=== PATIENT | male | born 1970 | race Caucasian/White ===

== ENCOUNTER 2020-06-07 08:30 | Emergency (ER) | payer MEDICAID, SELFPAY ==
[2019-04-07 12:41] VITALS: BMI 25.8
[2020-06-07 08:31] VITALS: BP 146/79; PULSE 85; RESP 18; TEMP 36.6; O2SAT 99; BMI 25.5
--- NOTE | 2020-06-07 09:07 | RAD_ITS ---
STUDY: X-RAY - LEFT SHOULDER REASON FOR EXAM: Male, 49 years old. Left shoulder pain x 1 month -- NKI -- limited ROM TECHNIQUE: 4 view(s) of the shoulder. COMPARISON: None. FINDINGS: Normal glenohumeral articulation. Normal acromioclavicular joint. Normal acromion. Normal humeral head and visualized proximal humerus. The soft tissue structures are unremarkable. Normal visualized pulmonary apex. RAD/Shoulder min 2 Views IMPRESSION: Normal x-ray examination of the shoulder. Electronically Signed: Onur Majano, at 10:06 EST Tel , Service support ,
--- NOTE | 2020-06-07 09:08 | ED.VIS.GEN ---
History of Present Illness Chief Complaint: Upper Extremity Injury Informant: Patient Narrative: 29-year-old male presenting with left shoulder pain. He states that the pain is intermittent. It feels sharp and its in the anterior aspect left shoulder. 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 He states that when he is working the pain eases up but when he is sleeping the pain hurts worse. He is not tried anything for pain. He has no paresthesias. He states he has no medical problems. He states otherwise he feels physically well. States he does not have a PCP and has not had this evaluated. Past Medical History - Allergies and Home Meds Allergies/Adverse Reactions: Allergies codeine Allergy (Verified 06/07/20 08:33) Rash Primary Care Physician: Care Physician,No Primary [Primary Care Provider] - Prior records reviewed: Yes Past Medical History: None Surgical History: noncontributory Lives: Spouse/ Significant Other Smoking Status: Current every day smoker Alcohol: None Drugs: None Review of Systems General: Denies: Chills, Fever, Sweats Eyes: Denies: Visual changes - bilaterally, Diplopia ENT: Denies: Rhinorrhea, Sore throat Cardiovascular: Denies: Chest pain, Palpitations Respiratory: Denies: Dyspnea, Cough, Dyspnea on exertion Gastrointestinal: Denies: Abdominal pain, Nausea, Vomiting, Diarrhea, Melena, Hematochezia Genitourinary: Denies: Dysuria, Hematuria, Frequency Musculoskeletal: Reports: Extremity Pain - Left shoulder pain. Denies: Neck pain, Back pain Skin: Reports: Abrasions - Superficial abrasion overlying the superior aspect of the left shoulder . Denies: Rash, Wounds Physical Exam Vital Signs/Narrative: Vital Signs Temp Pulse Resp BP Pulse Ox 06/07/20 08:31 97.9 F 85 18 146/79 H 99 General: Well nourished, Well developed, No Acute Distress Head: Normocephalic, Atraumatic Eyes: Perrl, EOMI ENT: Moist mucous membranes, No rhinorrhea Neck: Supple, Nontender Cardiovascular: Regular rate, Regular rhythm, No murmurs Respiratory: No distress, CTA bilaterally, Chest nontender Abdomen: Soft, Nontender, Nondistended, Normal bowel sounds Back: Nontender, Normal Inspection Extremities: No edema, - - Left shoulder is tender to palpation over the anterior superior aspect. There is a superficial abrasion measuring approximately 1.5 cm on the anterior aspect. Patient has full range of motion of the left shoulder. Strength in abduction, flexion, extension is 5/5. Skin: Normal color, - - Superficial abrasion as described above. Neurological: Alert, Oriented x3 Psychological: Normal affect, Normal Mood Diagnostic/Tx/Re-eval He 1-year-old male presenting with left shoulder pain. On physical exam he has full range of motion, 5/5 motor strength. He has no paresthesias. Patient does have a superficial abrasion on the left shoulder where he carries his lumbar. 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 Was given Naprosyn in the ER. He was given a prescription for this for home. He was given a primary care follow-up. Patient stable for discharge at this time. Impression: 1. Left shoulder strain ED Disposition - Plan for ED Patient: Disposition: Home or Assisted Living Instructions: ED Shoulder Sprain Prescriptions: Naproxen [Naprosyn] 500 mg PO BID PRN #30 tab Transmission Status: Received by [facility]/pharmacy #[id number] Referrals: Care Physician,No Primary [Primary Care Provider] - Reddy Hernandez MD [STAFF PHYSICIAN] -
[2020-06-07] MEDS: Naproxen 500 MG Tablet PO (09:16)
== END 2020-06-07 10:24 | disposition home or self-care (01) ==
PROVIDERS: Emergency Provider Student in an Organized Health Care Education/Training Program
DX: S46.912A Strain of unspecified muscle, fascia and tendon at shoulder and upper arm level, left arm, initial encounter (principal); F17.200 Nicotine dependence, unspecified, uncomplicated; X58.XXXA Exposure to other specified factors, initial encounter
CPT/HCPCS: 73030; 99283

== ENCOUNTER 2025-03-06 19:02 | Emergency (ER) | payer MEDICAID, SELFPAY ==
[2025-03-06 19:02] VITALS: BP 158/86; PULSE 79; RESP 18; TEMP 36.8; O2SAT 97; BMI 25.7
--- NOTE | 2025-03-06 19:20 | EKG12_ITS ---
Test Reason : CP Blood Pressure : */* mmHG Vent. Rate : 80 BPM Atrial Rate : 80 BPM P-R Int : 110 ms QRS Dur : 86 ms QT Int : 344 ms P-R-T Axes : 9 42 18 degrees QTcB Int : 396 ms Sinus rhythm with sinus arrhythmia with short NC T wave abnormality, consider inferior ischemia Abnormal ECG Confirmed by EBENEZER WHITTAKER ([id number]), manager editorial EVELYN FRANCIS ([id number]) on 03/09/2025 9:06:09 AM Referred By: Confirmed By: EBENEZER WHITTAKER
[2025-03-06 19:37] VITALS: O2SAT 97
--- NOTE | 2025-03-06 19:58 | RAD_ITS ---
PROCEDURE: CHEST 1 VIEW (PORTABLE) 03/06/2025 REASON FOR EXAM: CHEST PAIN TECHNIQUE: Frontal view of the chest. COMPARISON: None available. FINDINGS: Hardware: None. Heart: The heart size is normal. Lungs: The lungs are clear. Bones: The bones are unremarkable. RAD/Chest 1 View (Portable) IMPRESSION: No Acute Findings. Reading [facility]
[2025-03-06 20:02] VITALS: BP 138/89; PULSE 87; RESP 22; O2SAT 96
[2025-03-06 20:02] LABS: Hematocrit 40.2 % (40-54); Hemoglobin 14.2 g/dL (13.0-16.5); Immature Granulocytes Count 0.010 X10^3/uL (0.0-0.0); Mean Corp Hgb Conc 35.3 g/dL (32-36); Mean Corpuscular Volume 89.7 fL (80-94); Mean Platelet Vol. 9.2 fl (6.2-12.0); NRBC Flagged by Analyzer 0 % (0-5); Platelet Count 247 K/mm3 (150-450); RBC Distribution Width CV 12.3 % (11.6-14.6); RBC Distribution Width SD 40.2 fl (35.1-43.9); Red Blood Count 4.48 M/mm3 (4.6-6.2); White Blood Count 8.5 K/mm3 (4.4-11.0)
--- NOTE | 2025-03-06 20:10 | ED.VIS.CHEST ---
HPI History of Present Illness Chief Complaint: Chest Pain Narrative Narrative: Patient is a 54-year-old male presenting to the emergency department for chest pain. Patient states he does not go to the doctor so he does not have any significant past medical history. Denies any significant cardiac history. States he is unsure if he had any family members that from sudden cardiac but states that he did have family members with congestive heart failure. He reports that for the past month he has had worsening acid reflux at night. States that today he has had midsternal chest pain all day and had some tingling down his left arm. He states that he is only here because his made him come in. He does report tobacco use. He is not on any daily medications. Does endorse some mild shortness of breath with the chest pain. Reports a cough for the past few days that is sometimes productive of green sputum. Denies history of PE or DVT. Denies any recent travel, hospitalizations or surgeries. [facility] Medical History SOB (shortness of breath) Home Medications ?Medication ?Instructions ?Recorded ?Last Taken ?Type azithromycin 250 mg tablet See Rx Instructions PO .COMPLEX #6 05/30/24 Unknown Rx tabs albuterol sulfate 90 mcg/actuation 1 puff inhalation Q6H PRN 03/06/25 Unknown Rx aerosol inhaler (Ventolin HFA) shortness of breath or wheezing #8.5 grams Allergy/AdvReac Type Severity Reaction Status Date / Time codeine Allergy Rash Verified 03/06/25 19:05 Social History Smoking Status: Current every day smoker tobacco type: cigarettes Smokeless tobacco user: snuff ROS ROS ED ROS Narrative see HPI EXAM Physical Exam Narrative Exam Narrative: Vital signs: Reviewed General: Alert and orientedx3. No acute distress HEENT: Head is normocephalic and atraumatic, sinuses nontender, pupils equal round and reactive. Nares are patent. Oropharynx and throat exams normal. Neck: Supple without lymphadenopathy nontender Cardiovascular: Regular rate and rhythm, no murmurs. No rubs or gallops. Normal S1 and S2. Equal pulses throughout. Respiratory: Clear to auscultation bilaterally. No wheezes, rales, rhonchi Abdominal: Soft and nontender. No epigastric abdominal tenderness to palpation. Normal bowel sounds. No guarding or rebound. Nonsurgical abdomen Extremities: No tenderness. No bruising. Normal range of motion. Normal sensation. Skin: No rash or redness. Neurological: Cranial nerves II through XII are grossly intact. Normal strength and sensation. Normal cerebellar function The rest of the physical exam is unremarkable Const Vital Signs: 03/06/25 19:02 03/06/25 19:35 03/06/25 19:36 Temperature 98.3 F Temperature Source Oral Pulse Rate 79 Respiratory Rate 18 Respiratory Effort Normal Non-Labored Respiratory Depth Respiratory Pattern Blood Pressure 158/86 H Blood Pressure Mean 110 Pulse Ox 97 Oxygen Delivery Method Room Air Room Air 03/06/25 19:37 03/06/25 20:02 03/06/25 21:00 Temperature Temperature Source Pulse Rate 87 77 Respiratory Rate 22 H 16 Respiratory Effort Normal Non-Labored Respiratory Depth Normal Respiratory Pattern Normal Blood Pressure 138/89 H 112/90 H Blood Pressure Mean 105 97 Pulse Ox 96 95 Oxygen Delivery Method Room Air Room Air 03/06/25 22:00 03/06/25 23:00 03/07/25 00:08 Temperature 98 F Temperature Source Pulse Rate 78 76 78 Respiratory Rate 18 19 H 16 Respiratory Effort Respiratory Depth Respiratory Pattern Blood Pressure 130/78 H 119/74 111/65 Blood Pressure Mean 95 87 80 Pulse Ox 97 99 99 Oxygen Delivery Method MDM MDM MDM Narrative Medical decision making narrative: Patient is a 54-year-old male presenting to the emergency department for chest pain. Patient was seen and examined. Vitals are stable. Patient resting in bed comfortably no acute distress. Differential includes but is not limited to: ACS, bronchitis, pneumonia, acid reflux, less likely PE, pneumothorax or aortic pathology. Pain is not consistent with aortic pathology. Pulses are intact throughout. No tachycardia. EKG shows NSR. Initial EKG with artifact, repeat ordered. Repeat EKG with normal sinus rhythm. There is no ST elevation or depression. There is no abnormal T wave inversions. No significant dysrhythmia. CBC with no leukocytosis and normal hemoglobin. BMP with no significant abnormalities. Troponin and reflex within normal limits. Chest x-ray reviewed by myself and there is no opacities, pneumothorax or widened mediastinum. Radiology read with no acute abnormalities. No hypoxia, tachycardia, pleuritic chest pain to suspect PE. Patient is having intermittently productive cough for the past few days which is consistent with his prior episodes of bronchitis. Given the short course of this is likely viral in nature and I did recommend that he use an albuterol inhaler as needed, this was prescribed to him. Given the patient's age and his smoking history I did recommend that he follow-up with cardiology although his ACS workup here was negative. Patient and at bedside were updated on the findings and the recommendation for cardiology outpatient follow-up. They are comfortable with the plan. Patient discharged from the Emergency Department. I do not feel that the patient's evaluation reveals any acute reason for admission at this time. I instructed them to either follow-up with their primary care physician or promptly return to the Emergency Department for reevaluation should symptoms worsen or new symptoms develop. I explained what symptoms would indicate the need to return to the emergency department. Shared decision making was used. The patient voiced understanding of the treatment plan and is agreeable with it. Clinical impression: Chest pain History & Record Review Discussion w/independent historian: Patient Lab Data Attestation: I reviewed the patient's lab results. Labs: Laboratory Results - last 24 hr 03/06/25 03/06/25 19:45 21:36 WBC 8.5 RBC 4.48 L Hgb 14.2 Hct 40.2 MCV 89.7 MCH 31.7 MCHC 35.3 RDW Std Deviation 40.2 RDW Coeff of Darshan 12.3 Plt Count 247 MPV 9.2 Immature Gran % (Auto) 0.100 Neut % (Auto) 55.5 Lymph % (Auto) 35.0 Pitt % (Auto) 7.3 Eos % (Auto) 1.7 Baso % (Auto) 0.4 Absolute Neuts (auto) 4.7 Absolute Lymphs (auto) 2.96 Nucleated RBC % 0 Sodium 140 Potassium 3.9 Chloride 103 Carbon Dioxide 24.2 Anion Gap 13 BUN 12 Creatinine 0.83 Estim Creat Clear Calc 102.61 Est GFR (MDRD) Non-Af 103 BUN/Creatinine Ratio 14.5 Glucose 89 Calcium 9.2 Troponin T High Sens < 6 Troponin T Hi Sens 2 Hr < 6 Radiography Chest X-Ray - ED: 1 View, Read by ED Physician, Normal and No Acute Disease Diagnostic Testing: Clinical Impression(s) from Imaging Studies Chest X-Ray 03/06/25 19:58 IMPRESSION: No Acute Findings. Reading Location: [facility] Discharge Plan Triage Chief Complaint: Chest Pain Other Complaint: Cough ED Provider: Griselda Ellis Dx/Rx/DC Orders Clinical Impression: Bronchitis, Chest pain of uncertain etiology Instructions: Acute Bronchitis, ED Chest Pain, Uncertain Cause Prescriptions: New albuterol sulfate [Ventolin HFA] 90 mcg/actuation HFA aerosol inhaler 1 puff inhalation Q6H PRN (Reason: shortness of breath or wheezing) Qty: 8.5 0RF No Action azithromycin 250 mg tablet See Rx Instructions PO .COMPLEX Qty: 6 0RF Rx Instructions: take 500 mg today (day 1), then 250 mg for 4 days (days 2-5) PO Primary Care Provider: Care Physician,No Primary Referrals: Nabor Neumann MD [Med Staff - Active Staff, Cardiology] - 3-5 Days if not improving Care Physician,No Primary [Primary Care Provider, Medical] Activity Restrictions/Additional Instructions: Your evaluation in the Emergency Department did not reveal any acute reason for admission. However, I want to emphasize that you may be early in the course of a disease process or illness even if it is not present. For this reason you should follow-up within 24 hours for reevaluation with either your primary care physician or if necessary back here in the Emergency Department. You should return to the Emergency Department immediately if your symptoms worsen or new symptoms develop. Print Language: Hebrew Disposition Disposition: Home, Self Care Discharge Date/Time: 03/07/25 00:09
--- NOTE | 2025-03-06 20:14 | EKG12_ITS ---
Test Reason : REPEAT Blood Pressure : */* mmHG Vent. Rate : 77 BPM Atrial Rate : 77 BPM P-R Int : 144 ms QRS Dur : 92 ms QT Int : 356 ms P-R-T Axes : 52 56 40 degrees QTcB Int : 402 ms Normal sinus rhythm with sinus arrhythmia Normal ECG Confirmed by EBENEZER WHITTAKER ([id number]), development editor EVELYN FRANCIS ([id number]) on 03/09/2025 9:06:00 AM Referred By: Confirmed By: EBENEZER WHITTAKER
--- OUTSIDE RECORDS SUMMARY | 2025-03-06 20:28 | XMS RPT_ITS | CCD ---
Author Organization [facility] Care Team Providers Care Protective Officer Name Role Phone Care Physician, No Primary Primary Care Unava ilable Care Physician, No Primary Referring Sandyva jungable Yuri HUANG, Raman Attending Unavailable Yuri PA, Raman Attending Unavailable Care Physician, No Primary Primary Care Unava ilable Care Physician, No Primary Referring Raman Hung Attending Unavailable Care Physician, No Primary Primary Care Unava ilable Care Physician, No Primary Referring Unava ilable Allergies Allergy Classification Reported Allergen(s) Allergy Type Date of Onset Reaction(s) Facility (1 source) Codeine Drug Allergy 05-30-2024 [facility] Repository Problems Active Problems Problem Classification Problem Date Documented Da te Episodic/Chronic Allergic reactions (1 source) Unspecified contact dermatitis, unspecified cause; Translations: [Unspecified contact dermatitis, unspecified cause] Onset: 04-18-2024 Episodic Other lower respiratory disease (1 source) Other specified respiratory disorders; Translations: [Other specified respiratory disorders] Onset: 05-30-2024 Episodic Unclassified (1 source) Cough, unspecified; Translations: [Cough, unspecified] Onset: 07-30-2023 Past or Other Problems Problem Classification Problem Date Documented Da te Episodic/Chronic Chronic obstructive pulmonary disease and bronchiectasis (1 source) Bronchitis, not specified as acute or chronic; Translations: [Bronchitis, not specified as acute or chronic] Onset: 07-30-2023 Episodic Results Test Name Value Interpretation Reference Range Facility Urgent Care Visit Reporton 1 07-31-2023 Urgent Care Visit Report [facility] [address], [address] [place] [address] OFFICE VISIT Date of Service: 05/30/24 MR#: [id number] Acct: [id number] Name: ANAHI BORDEN Rep #: [id number] : 1970 Provider: REINA Bowman Age/Sex: 53/M Location: [facility] Status: Signed Intake Vital Signs 06/07/20 08:31 05/30/24 14:13 Height 5 ft 10 in BP 130/64 H Blood Pressure Location Lt brachial Position Sitting Respiration 16 Pulse 68 Pulse Source NIBP Temp 98.2 F Temp Source Oral Pulse Oximetry (%) 96 Oxygen Delivery Method room air Intake Visit Reasons: CONGESTION Chief Complaint: cough, congestion, face pain, mucus Telephone Switchboard Operator Required: No Is patient in pain?: Yes Allergies codeine Allergy (Verified 05/30/24 14:13) Rash Medications ???Medication ???Instructions ???Recorded ???Confirmed ???Type azithromycin 250 mg tablet See Rx Instructions PO .COMPLEX #6 05/30/24 05/30/24 Rx tabs Have you fallen in the past year?: No Nurse's Note: cough, congestion, face pain, mucus, decreased taste/smell x 5 days. denies fever. [facility] Medical History SOB (shortness of breath) Social History (Updated 04/07/19 @ 12:52 by Spencer HUANG, PA) Smoking Status: Current every day smoker Smokeless tobacco user: snuff HPI HPI Chief Complaint: cough, congestion, face pain, mucus Details: ANAHI BORDEN, is a 53 M who presents to the office today for cough, congestion and sinus pressure for the past 5 days. Patient denies fever, chills, sweats. No hemoptysis, shortness of breath or difficulty breathing. No nausea, vomiting or diarrhea. No other associated symptoms or alleviating/aggravating factors. ROS Const Constitutional: Positive for other (6 system ROS completed with pertinent findings in the HPI otherwise normal.) Exam Const General: cooperative and well developed HENMT Head: normal to inspection and atraumatic Ears: hearing grossly normal bilaterally Nose: nasal discharge clear Face and sinus: normal facial exam Mouth: oral mucosae normal Throat: abnormal tonsil bilaterally hypertrophy 1+ Resp Effort Inspection: normal respiratory effort and no audible wheezes Auscultation: Bilateral: Clear to Auscultation Cardio Palpation: normal PMI Rate: regular rate Rhythm: regular rhythm Neuro General: patient alert and CN's II-XI intact bilaterally Psych Appearance: grossly normal Mental Status: mental status grossly normal Coding Level of Care Code Off vis,est,level 3 Diagnoses Acute bronchitis J20.9 Assessment and Plan Assessment and Plan (1) Acute bronchitis: Status: Acute Plan: Patient tested negative for influenza, COVID in the office today. Azithromycin as prescribed today. Encouraged to get plenty of rest, drink lots of clear liquids, and use Tylenol or Ibuprofen (unless contraindicated) for fever and comfort. Patient also educated on other symptomatic management techniques. To be seen in 7-10 days if no improvement; sooner if worsening of symptoms. Patient advised of potential red flags and when appropriate to report to the ED. Patient verbalized understanding and agreement with all the above. Orders: Orders POC FLU A B Today J98.8 - Other specified respiratory disorders POC Rapid SARS Antigen Today Medications: New azithromycin take 500 mg today (day 1), then 250 mg for 4 days (days 2-5) PO 6 tabs 0RF Clinical Quality Measures Falls Risk Screening/Assistive Devices Have you fallen in the past year?: No 05/30/24 1553 Date Raman Hamlin Signature: Date (if applicable) CC: Normal [facility] Urgent Care Visit Reporton 1 06-18-2023 Urgent Care Visit Report [facility] [address], [address] [place] [address] OFFICE VISIT Date of Service: 04/18/24 MR#: [id number] Acct: [id number] Name: ANAHI BORDEN Wilian Rep #: [id number] : 1970 Provider: REINA Bowman Age/Sex: 53/M Location: [facility] Status: Signed Intake Vital Signs 06/07/20 08:31 04/18/24 10:04 Height 5 ft 10 in BP 132/80 H Blood Pressure Location Lt brachial Position Sitting Respiration 12 Pulse 65 Pulse Source Monitor Temp 98.2 F Temp Source Oral Pulse Oximetry (%) 99 Oxygen Delivery Method room air Intake Visit Reasons: EAR CLOGGED/ R KNEE PAIN Allergies codeine Allergy (Verified 04/18/24 10:05) Rash [facility] Medical History SOB (shortness of breath) Social History (Updated 04/07/19 @ 12:52 by Spencer HUANG, PA) Smoking Status: Current every day smoker Smokeless tobacco user: snuff HPI HPI Details: ANAHI BORDEN, is a 53 M who presents to the office today for complaint of bilateral ears being plugged as well as right knee pain. Patient does state that he gets his ears flushed out almost on a yearly basis. He also states that he has had no otorrhea however has had some hearing loss but more that they get plugged. Additionally patient complains of right knee pain worse over the last month however intermittently for the past several months. Patient states he had some sort of procedure done 10 to 15 years ago due to a knee injury which he is not sure of. 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 He states over the past month he has had difficulty with stiffening of the right knee particular with prolonged periods of being seated or when his leg hangs down. He denies numbness, tingling or loss range of motion. No other associated symptoms or alleviating/aggravating factors. ROS Const Constitutional: Positive for other (6 system ROS completed with pertinent findings in the HPI otherwise normal.) Exam Const General: cooperative and healthy appearing [facility] Head: normocephalic and atraumatic Ears: hearing grossly normal bilaterally and EAC abnormal cerumen impaction bilaterally (Cleared with irrigation and curettage.) Nose: external nose normal Face and sinus: normal facial exam and face symmetric Mouth: oral mucosae normal Throat: posterior oropharynx normal Eyes General: appearance normal, both eyes and all related structures Skin General: no rashes or lesions noted Neuro General: patient alert and CN's II-XI intact bilaterally Extrem General: full ROM, capillary refill normal, normal exam except as noted and no joint enlargement Other: Pain to palpation of posterior right knee with no obvious deformity. Negative anterior and posterior drawer sign. Psych Appearance: grossly normal Mental Status: mental status grossly normal Coding Level of Care Code Off vis,est,level 3 Diagnoses Bilateral hearing loss due to cerumen impaction H61.23 Arthritis of right knee M17.11 Assessment and Plan Assessment and Plan (1) Bilateral hearing loss due to cerumen impaction: Status: Acute (2) Arthritis of right knee: Status: Acute Medications: New prednisone Take 4 tabs once daily days 1-3 3 tabs once daily days 4-6 2 tabs once daily days 7-9 and 1 tab once daily days 10-12. 10 mg PO QDAY 30 tabs 0RF 12 days L25.9 - Unspecified contact dermatitis, unspecified cause Plan Ears cleared with irrigation and curettage performed by myself. Prednisone is prescribed today for arthrosis. Patient advised to follow-up with orthopedics in 10 to 14 days if no better or sooner if worse. Patient verbalized understanding and agreement with all the above. 04/18/24 1048 Date Raman HUANG [facility] Signature: Date (if applicable) CC: Normal [facility] Urgent Care Visit Reporton 0 07-20-2023 Urgent Care Visit Report [facility] [address], [address] [place] [address] OFFICE VISIT Date of Service: 07/20/23 MR#: [id number] Acct: [id number] Name: ANAHI BORDEN Wilian Rep #: [id number] : 1970 Provider: REINA Bowman Age/Sex: 52/M Location: [facility] Status: Signed Intake Vital Signs 06/07/20 08:31 07/20/23 11:18 Height 5 ft 10 in BP 150/74 H Blood Pressure Location Lt brachial Position Sitting Respiration 18 Pulse 88 Pulse Source NIBP Temp 98.3 F Temp Source Temporal Pulse Oximetry (%) 96 Oxygen Delivery Method room air Intake Visit Reasons: COUGH, CONGESTION Chief Complaint: cough, congestion, rib pain Telephone Switchboard Operator Required: No Is patient in pain?: No Allergies codeine Allergy (Verified 07/20/23 11:18) Rash Medications azithromycin 250 mg tablet See Rx Instructions PO .COMPLEX #6 tabs 07/20/23 [Rx Confirmed 07/20/23] benzonatate 100 mg capsule 200 mg (2 x 100 mg) PO TID PRN cough #30 caps 07/20/23 [Rx Confirmed 07/20/23] PFSH Medical History SOB (shortness of breath) Social History (Updated 04/07/19 @ 12:52 by Spencer HUANG, PA) Smoking Status: Current every day smoker Smokeless tobacco user: snuff HPI HPI Chief Complaint: cough, congestion, rib pain Details: ANAHI BORDEN, is a 52 M who presents to the office today for complaint of cough, congestion and sore ribs from the cough. Patient states this has been ongoing for the past week after he finished dealing with a stomach bug. He denies fever, chills, sweats. No nausea, vomiting or diarrhea. No hemoptysis, shortness of breath or difficulty breathing. No loss of taste or smell. No other associated symptoms or alleviating/aggravating factors. ROS Const Constitutional: Positive for other (6 system ROS completed with pertinent findings in the HPI otherwise normal.) Exam Const General: cooperative and well developed [facility] Head: normal to inspection and atraumatic Ears: hearing grossly normal bilaterally Nose: nasal discharge clear Face and sinus: normal facial exam Mouth: oral mucosae normal Throat: abnormal tonsil bilaterally hypertrophy 1+ Resp Effort Inspection: normal respiratory effort and no audible wheezes Auscultation: Bilateral: Clear to Auscultation Cardio Palpation: normal PMI Rate: regular rate Rhythm: regular rhythm Neuro General: patient alert and CN's II-XI intact bilaterally Psych Appearance: grossly normal Mental Status: mental status grossly normal Coding Level of Care Code Off vis,est,level 3 Diagnoses Bronchitis J40 Assessment and Plan Assessment and Plan (1) Bronchitis: Status: Acute Orders: Orders POC FLU A B Today R05.9 - Cough, unspecified POC Rapid SARS Antigen Today Medications: New benzonatate 200 mg (2 x 100 mg) PO TID PRN 30 caps 0RF cough azithromycin take 500 mg today (day 1), then 250 mg for 4 days (days 2-5) PO 6 tabs 0RF Plan Benzonatate and azithromycin as prescribed today. Patient tested negative for COVID and flu. Encouraged to get plenty of rest, drink lots of clear liquids, and use Tylenol or Ibuprofen (unless contraindicated) for fever and comfort. Patient also educated on other symptomatic management techniques. To be seen in 7-10 days if no improvement; sooner if worsening of symptoms. Patient advised of potential red flags and when appropriate to report to the ED. Patient verbalized understanding and agreement with all the above. 07/20/23 1139 Date Raman Hamlin Signature: Date (if applicable) CC: Diony [facility] 05-11-[address] [facility] Office Visit ([facility]) -ANAHI BORDEN ([id number]) 1970 MDate Time Provider Xsaqfenmft46/1/18 3:00 PM LUIS FLORES [facility] During your visit today, we recorded the following information about you: Temperature Pulse Respiration Blood pressure 97.1 degrees 72/minute 16/minute 120/70 Weight 80.3 kgLuis Flores MD 05/11/2018 4:43 PM SignedPatient presents with:Pain: shoulderHPI:Left shoulder pain: Duration: Couple weeks. He indicates he was already here and his wiferequested he have it checked out. He thinks he is just getting old. Location: Outer left shoulder > right Character: throbbing Radiation: Down the arm Aggravating: Holding steering wheel too long, sleeping on left shoulder.Pain is not evoked with exertion. Relieving: Sleeping on the right shoulder. 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 Pulling with lateralneck extension but no pain evoked. No midline or paraspinal pain. HEART: regular rate, regular rhythm, no murmurs LUNGS: clear to auscultation, no wheezes or crackles, no increased WOB EXT: no clubbing, no cyanosis, no edema, partial amputation of thumb. SHOULDER: bilateral. No deformity or sweling. ROM: normal. Impingementtest: Negative. Supraspinatus (empty can test): mild weakness on the left.Cross arm test: Negative. ARM strength: Bilateral weak elbow extension. Bilateral weak pincer grasp. Left weak finger abduction. Normal elbow flexion, shoulderabduction/adduction, handgrip.ASSESSMENT/PLAN:1. Acute pain of left shoulder - ICD9: 719.41, ICD10: M25.512 (primarydiagnosis)2. Weakness of both arms - ICD9: 729.89, ICD10: R29.898Exam is concerning for spinal cord/radicular pathology. I advised he follow upfor further evaluation. He is not interested in follow up.Luis Flores, MDReferring Provider: SELF [200]Allergies As of Date: 05/11/2018(No Known Allergies)Date Reviewed: 12/01/2018Reviewed by: Zully Lynn Ma - Fully AssessedReason for Visit: Pain [78] Cmt: shoulderPrimary Visit Diagnosis:Acute pain of left shoulder [M25.512] Other Visit Diagnosis:Weakness of both arms [R29.898]Problem List As Of Date: 05/11/2018(None)Medications Discontinued During This Encounter hydrOXYzine HCl (ATARAX) 25 mg tablet 30 t* 0 08/28/2015 05/11/2018 Route: ORAL Sig: Take 1 tablet by mouth every 4 hours as needed for Itching/Rash. Disc: Course of therapy completed triamcinolone (KENALOG) 0.1 % lotion 240 * 2 08/28/2015 05/11/2018 Route: TOPICAL Sig: Apply 1 application to affected area three times daily. Disc: Course of therapy completed predniSONE (DELTASONE) 10 mg tablet 39 t* 0 08/28/2015 05/11/2018 Sig: Take 6 tabs for 3 days, then 4 tabs for 3 days, then 2 tabs for 3 days then 1 tab for 3 days with food. Disc: Course of therapy completedEncounter Number: [id number] Status:Closed by LUIS FLORES MD on 05/11/18 Normal [facility] PROGRESSon 05-11-2018 Protein mass conc HNO ID: [id number]: Luis Buttervice: (none)Author Type: PhysicianType: Progress NotesFiled: 05/11/2018 4:43 PMNote Text:Patient presents with:Pain: shoulderHPI:Left shoulder pain: Duration: Couple weeks. He indicates he was already here and his wiferequested he have it checked out. He thinks he is just getting old. Location: Outer left shoulder > right Character: throbbing Radiation: Down the arm Aggravating: Holding steering wheel too long, sleeping on leftshoulder. Pain is not evoked with exertion. Relieving: Sleeping on the right shoulder. 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 Pulling withlateral neck extension but no pain evoked. No midline or paraspinal pain. HEART: regular rate, regular rhythm, no murmurs LUNGS: clear to auscultation, no wheezes or crackles, no increased WOB EXT: no clubbing, no cyanosis, no edema, partial amputation of thumb. SHOULDER: bilateral. No deformity or sweling. ROM: normal.Impingement test: Negative. Supraspinatus (empty can test): mild weaknesson the left. Cross arm test: Negative. ARM strength: Bilateral weak elbow extension. Bilateral weak pincergrasp. Left weak finger abduction. Normal elbow flexion, shoulderabduction/adduction, handgrip.ASSESSMENT/PLAN:1. Acute pain of left shoulder - ICD9: 719.41, ICD10: M25.512 (primarydiagnosis)2. Weakness of both arms - ICD9: 729.89, ICD10: R29.898Exam is concerning for spinal cord/radicular pathology. I advised hefollow up for further evaluation. He is not interested in follow up.Luis Flores MD [facility] 04-13-2018 CNNURSE Nurse Visit ([facility]) -ANAHI BORDEN ([id number]) 1970 MDate Time Provider Ffnlhchcxt42/3/18 9:20 AM NURSE [facility] During your visit today, we recorded the following information about you:Verito Glaser Ma 04/13/2018 9:06 AM [id number] year old male here for INACTIVATED INFLUENZA VACCINE. SeasonPatient is identified by name and date of : Yes [] CONTRAINDICATIONS color enhancedsectionAge less than 6 months? NoAllergy to eggs, chicken, chicken feathers, or chicken dander? NoAllergy to thimerosal (a preservative) or formaldehyde, gelatin? NoHistory of severe reaction to any vaccine component or a previous dose ofinfluenza vaccination? NoHistory of Guillain-[place] Syndrome within 6 weeks after a previous influenzavaccine? NoPatient is not moderately or severely ill? NoCurrent temperature greater or equal to 100.4F? NoHistory of Bone Marrow Transplant prior 6 months or solid organ transplant inthe past 3 months ? NoHistory of fainting after a prior injection or medical procedure? No-? If patient has fainted in the past, the CDC recommends sitting or lying downfor 15 minutes after the vaccination. [] VERIFICATION colorenhanced sectionWas the answer Yes for any of the above contraindications? Nocontraindications present. Acceptable to proceed with vaccine.Patient/guardian agrees the above answers are true to the best of theirknowledge? YesFlu vaccine information sheet given? YesSee immunization activity in [facility] for details of immunizations adminsteredtoday.Patient age: [age] year old For The Flu Season6-35 months old: Fluzone 0.25 ml - IM (Preservative Free)3 years of age: Fluzone 0.5 ml - IM (Preservative Free)3 years and older: Fluzone 0.5 ml- IM-(with Preservatives)65+ years old:2-49 years old Fluzone High-Dose 0.5 ml - IM (Preservative Free)FLUMIST- intranasalREMEMBER: If patient is less than 9 years of age and this is the first vaccineof Influenza to be received in any flu season, they should receive a seconddose in one months time.Referring Provider: SELF [200]Allergies As of Date: 04/13/2018(No Known Allergies)Date Reviewed: 01/10/2016Reviewed by: Belia Robison LPN - Fully AssessedReason for Visit: Imm/Inj [58] Cmt: Flu VaccinePrimary Visit Diagnosis:Need for vaccination [Z23]Order(s):INFLUENZA VACCINE QUADRIVALENT AGE 3 YRS PLUS + IM [[id number]] Order #: [id number] as of 04/13/2018 Sig: PREDNISONE 10 MG TABLET Take 6 tabs for 3 days, then * TRIAMCINOLONE ACETONIDE 0.1 %* Apply 1 application to affect* HYDROXYZINE HCL 25 MG TABLET Take 1 tablet by mouth every *Problem List As Of Date: 04/13/2018(None) Status:Closed by WILLIAMS URRUTIA LPN on 04/13/18 Normal [facility] PROGRESSon 04-13-2018 Protein mass conc HNO ID: [id number]: Verito Rodarteervice: (none)Author Type: (none)Type: Progress NotesFiled: 04/13/2018 9:06 AMNote Text:47 year old male here for INACTIVATED INFLUENZA VACCINE.[id number] SeasonPatient is identified by name and date of : Yes [] CONTRAINDICATIONS colorenhanced sectionAge less than 6 months? NoAllergy to eggs, chicken, chicken feathers, or chicken dander? NoAllergy to thimerosal (a preservative) or formaldehyde, gelatin? NoHistory of severe reaction to any vaccine component or a previous dose ofinfluenza vaccination? NoHistory of Guillain-[place] Syndrome within 6 weeks after a previousinfluenza vaccine? NoPatient is not moderately or severely ill? NoCurrent temperature greater or equal to 100.4F? NoHistory of Bone Marrow Transplant prior 6 months or solid organ transplantin the past 3 months ? NoHistory of fainting after a prior injection or medical procedure? No-? If patient has fainted in the past, the CDC recommends sitting or lyingdown for 15 minutes after the vaccination. [] VERIFICATIONcolor enhanced sectionWas the answer Yes for any of the above contraindications? Nocontraindications present. Acceptable to proceed with vaccine.Patient/guardian agrees the above answers are true to the best of theirknowledge? YesFlu vaccine information sheet given? YesSee immunization activity in [facility] for details of immunizationsadminstered today.Patient age: [age] year old For The 7563-2011 Flu Season6-35 months old: Fluzone 0.25 ml - IM (Preservative Free)3 years of age: Fluzone 0.5 ml - IM (Preservative Free)3 years and older: Fluzone 0.5 ml- IM-(with Preservatives)65+ years old:2-49 years old Fluzone High-Dose 0.5 ml - IM (Preservative Free)FLUMIST- intranasalREMEMBER: If patient is less than 9 years of age and this is the firstvaccine of Influenza to be received in any flu season, they should receivea second dose in one months time. Normal [facility] Encounters Encounter Date Encounter Type Care Provider Facility Start: 05-30-2024 End: 05-30-2024 ambulatory No Primary Care Physician Facility:[facility] Start: 04-18-2024 End: 04-18-2024 ambulatory Raman HUANG Facility:[facility] Start: 07-20-2023 End: 07-20-2023 ambulatory Raman HUANG Facility:[facility] Start: 05-11-2018 End: 05-13-2018 Patient encounter procedure [facility] Start: 04-13-2018 End: 04-15-2018 Patient encounter procedure [facility] Payers Date Payer Category Payer Self-pay 2023 Unknown [id number] Unknown [id number] Unknown [id number] Unknown [id number] Summary Purpose Family History No Family History Records FoundNo Family History Records Found Advance Directives No Advanced Directives Records FoundNo Advanced Directives Records Found Additional Source Comments (unrecognized sect ion and content) No Status Records FoundNo Status Records Found INFORMATION SOURCE (unrecogn ized section and content) DATE CREATED AUTHOR 05/19/2018 [facility] DATE CREATED AUTHOR AUTHOR'S VARINDER FREEMAN 06/02/2024 [facility] FOR RECORDS PERTAINING TO PATIENTS WHO ARE OR HAVE BEEN ENROLLED IN A CHEMICAL DEPENDENCY/SUBSTANCEABUSE PROGRAM, SOME INFORMATION MAY BE OMITTED. This clinical summary was aggregated from multiple sources. Caution should be exercised in using it in the provision of clinical care. This summary normalizes information from multiple sources, and as a consequence, information in this document may materially change the coding, format and clinical context of patient data. In addition, data may be omitted in some cases. CLINICAL DECISIONS SHOULD BE BASED ON THE PRIMARY CLINICAL RECORDS. [employer] provides no warranty or guarantee of the accuracy or completeness of information in this document.
[2025-03-06 20:33] LABS: Anion Gap 13 (5-15); BUN 12 mg/dL (4-19); BUN/Creat Ratio 14.5 RATIO (10-20); Calcium,Total 9.2 mg/dL (7.6-11.0); Carbon Dioxide 24.2 mmol/L (21.0-32.0); Chloride 103 mmol/L (98-108); Estimated Creatinine Clearance 102.61 ml/min (50-250); Glucose 89 mg/dL (70-99); Potassium 3.9 mmol/L (3.3-5.1); Troponin T High Sensitivity < 6 ng/L (<=22)
[2025-03-06 21:00] VITALS: BP 112/90; PULSE 77; RESP 16; O2SAT 95
[2025-03-06 22:00] VITALS: BP 130/78; PULSE 78; RESP 18; O2SAT 97
[2025-03-06 22:26] LABS: Troponin T High Sens 2 HR < 6 ng/L (<=22)
[2025-03-06 23:00] VITALS: BP 119/74; PULSE 76; RESP 19; O2SAT 99
--- NOTE | 2025-03-06 23:24 | PCA ---
no old ekg
[2025-03-07 00:08] VITALS: BP 111/65; PULSE 78; RESP 16; TEMP 36.6; O2SAT 99
== END 2025-03-07 00:09 | disposition home or self-care (01) ==
PROVIDERS: Emergency Provider Student in an Organized Health Care Education/Training Program; Visit Provider Student in an Organized Health Care Education/Training Program
DX: J40 Bronchitis, not specified as acute or chronic (principal); R07.9 Chest pain, unspecified; F17.210 Nicotine dependence, cigarettes, uncomplicated; F17.220 Nicotine dependence, chewing tobacco, uncomplicated
CPT/HCPCS: 71045; 80048; 84484; 85025; 93005; 99285; A4216